=== PATIENT | female | born 1970 | race Hispanic/Latino ===

== ENCOUNTER 2018-04-30 15:55 | Emergency (ER) | payer MEDICAID ==
--- NOTE | 2018-04-30 17:10 | C.PDOC ---
History Of Present Illness Pt is a 47 year old female patient presents to the ER with family with c/o intermittent left chest pain that occurred 2 days ago. Patient notes that the pain radiates to her left arm and feels like a sharp; she has not have this before; associated symptom is SOB. Patient denies , and her LNMP was yesterday. Pt states that she did have a little bit of a cough last 2 days. Patient's PCP is Dr. Angie Montes. Time Seen by Provider: 04/30/18 16:46 Chief Complaint (Nursing): Chest Pain History Per: Patient History/Exam Limitations: no limitations Onset/Duration Of Symptoms: Days (x3), Intermittent Episodes Current Symptoms Are (Timing): Still Present Quality: Sharp, Other (numb) Past Medical History Reviewed: Historical Data, Nursing Documentation, Vital Signs Vital Signs: Last Vital Signs Temp 98.1 F 04/30/18 18:15 Pulse 58 L 04/30/18 18:15 Resp 20 04/30/18 18:15 BP 115/69 04/30/18 18:15 Pulse Ox 100 04/30/18 18:33 Family History: States: Unknown Family Hx - Social History Hx Tobacco Use: No Hx Alcohol Use: No Hx Substance Use: No - Immunization History Hx Tetanus Toxoid Vaccination: No Hx Influenza Vaccination: No Hx Pneumococcal Vaccination: No Review Of Systems Except As Marked, All Systems Reviewed And Found Negative. Cardiovascular: Positive for: Chest Pain (left side; radiate to the left arm) Respiratory: Positive for: Shortness of Breath. Negative for: Cough Genitourinary: Negative for: Other () Musculoskeletal: Positive for: Arm Pain (left) Physical Exam - Physical Exam Appears: Well, Non-toxic, No Acute Distress Skin: Normal Color, Warm, Dry Head: Atraumatic, Normacephalic Eye(s): bilateral: Normal Inspection Neck: Normal ROM, Supple Chest: Symmetrical, Tenderness (reproducible chest wall tenderness when touch left ant chest) Cardiovascular: Rhythm Regular Respiratory: Normal Breath Sounds Gastrointestinal/Abdominal: Soft, No Tenderness Extremity: Normal ROM, No Tenderness, No Pedal Edema, Capillary Refill (<2 sec) , Other (slight pain with ROM) Pulses: Left Radial: Normal, Right Radial: Normal, Left Dorsalis Pedis: Normal, Right Dorsalis Pedis: Normal Neurological/Psych: Oriented x3, Normal Speech, Normal Motor, Normal Sensation, Normal Reflexes Gait: Steady ED Course And Treatment - Laboratory Results Result Diagrams: 04/30/18 17:19 04/30/18 17:19 O2 Sat by Pulse Oximetry: 100 (RA) Pulse Ox Interpretation: Normal Medical Decision Making Medical Decision Making: Initial impression: Left sided chest pain; differential diagnosis includes but is not limited to pneumonia, PTX, PE (will check d-dimer), costochondritis Initial Plan: -- EKG -- blood work -- Apirin 324 mg -- UA Progress note: 6:27 PM - Pt feels better. Radiology sees small opacity. Will treat as outpatient for costochondritis; but will also add PO abx because of this opacity. Disposition Counseled Patient/Family Regarding: Studies Performed, Diagnosis, Need For Followup, Rx Given - Disposition Disposition: HOME/ ROUTINE Disposition Time: 18:28 Condition: STABLE Additional Instructions: Rossy, thank you for letting us take care of you today. Return to the ER if your symptoms worsen, or if any problems. Follow up with Dr. Weathers in 2-3 days for a re-evaluation. Take the medication listed below as prescribed. Prescriptions: Azithromycin [Zithromax Tri-Diallo] 1 tab PO DAILY #7 tablet Ibuprofen [Motrin] 1 tab PO Q8 PRN #30 tab PRN Reason: Pain, Moderate (4-7) Instructions: Pneumonia, Adult (DC), Costochondritis (DC) Forms: [email or web address] (Macedonian) Print Language: FRENCH - Clinical Impression Clinical Impression: Costochondritis, Pneumonia - Scribe Statement The provider has reviewed the documentation as recorded by the Piotr Goyal Do Provider Attestation: All medical record entries made by the Piotr were at my direction and personally dictated by me. I have reviewed the chart and agree that the record accurately reflects my personal performance of the history, physical exam, medical decision making, and the department course for this patient. I have also personally directed, reviewed, and agree with the discharge instructions and disposition.
[2018-04-30 17:22] LABS: BASO # 0.1 K/uL (0.0-0.2); BASO % 0.6 % (0.0-2.0); EOS # 0.1 K/uL (0.0-0.7); EOS % 1.1 % (0.0-4.0); HEMOGLOBIN 12.7 g/dL (11.0-16.0); LYMPH # 3.1 K/uL (1.0-4.3); LYMPH % 37.6 % (20.0-40.0); MEAN CELL VOLUME 85.1 fL (81.0-99.0); MEAN CORPUSCULAR HEMOGLOBIN 28.4 pg (27.0-31.0); MEAN CORPUSCULAR HGB CONC 33.3 g/dL (33.0-37.0); MEAN PLATELET VOLUME 9.1 fL (7.2-11.7); MONO # 0.4 K/uL (0.0-0.8); MONO % 5.4 % (0.0-10.0); NEUT # 4.5 K/uL (1.8-7.0); NEUT % 55.3 % (50.0-75.0); RBC 4.46 Mil/uL (3.80-5.20); RED CELL DISTRIBUTION WIDTH 13.6 % (11.5-14.5); WHITE BLOOD COUNT 8.2 K/uL (4.8-10.8)
[2018-04-30 17:34] LABS: ALB/GLOB RATIO 1.7 (1.0-2.1); ALBUMIN 4.3 g/dL (3.5-5.0); ALT/SGPT 25 U/L (9-52); AST/SGOT 20 U/L (14-36); BLOOD UREA NITROGEN 17 mg/dL (7-17); CALCIUM 9.1 mg/dl (8.6-10.4); GFR AFRICAN-AMERICAN > 60; GFR NON-AFRICAN AMERICAN > 60
[2018-04-30] MEDS ORDERED: Potassium Chloride 20 mEq ER Tab PO STA (17:35)
[2018-04-30] MEDS ORDERED: Sodium Chloride 0.9% 1,000 ML IV ONE (17:57)
[2018-04-30 18:01] LABS: SQUAMOUS EPITHIAL 6 /hpf (0-5); URINE BILIRUBIN NEGATIVE (NEGATIVE); URINE BLOOD 1+ (NEGATIVE); URINE CLARITY Hazy (Clear); URINE COLOR Yellow (YELLOW); URINE GLUCOSE (UA) NORMAL (Normal); URINE LEUKOCYTE ESTERASE TRACE Leu/uL (Negative); URINE PROTEIN NEGATIVE (NEGATIVE); URINE UROBILINOGEN NORMAL mg/dL (0.2-1.0)
[2018-04-30 18:17] VITALS: BP 115/69; PULSE 58; RESP 20; TEMP 98.1
--- NOTE | 2018-04-30 18:23 | RAD ---
Date of service: 04/30/2018 HISTORY: chest pain COMPARISON: Comparison is made with 07/30/2014 TECHNIQUE: Chest PA and lateral FINDINGS: LUNGS: Small opacities at the left lung base. PLEURA: No significant pleural effusion identified. No pneumothorax apparent. CARDIOVASCULAR: Normal. OSSEOUS STRUCTURES: No significant abnormalities. VISUALIZED UPPER ABDOMEN: Normal. OTHER FINDINGS: None. IMPRESSION: Small opacity at the left lung base may represent atelectasis. Otherwise no interval change.
[2018-04-30 18:29] VITALS: O2SAT 100
--- NOTE | 2018-05-03 15:02 | CARD ---
APPROVED REPORT Date of service: 04/30/2018 EKG Measurement Heart [id number] <Conclusion> Normal sinus rhythm Normal ECG
== END 2018-04-30 18:45 | disposition home or self-care (01) ==
LOC: C.ER 15:55
DX: J18.9 Pneumonia, unspecified organism (principal); M94.0 Chondrocostal junction syndrome [Tietze]; E87.6 Hypokalemia
CPT/HCPCS: 71046; 80053; 81001; 82550; 84484; 85025; 85378; 93005; 96374; 99285; J1885; J7030